=== PATIENT | female | born 1950 | race Caucasian/White ===

== ENCOUNTER → 2017-12-17 | Outpatient (CLI) | payer OTHER ==
[~2017-12-17] MED LIST: ACET325 PO; ALBU90OI INH; ALBU90OI61 INH; AMLO5 PO; ASCO500 PO; ATOR40TA PO; BENA20 PO; CYAN100 PO; DOCU100 PO; DULO60 PO; ERGO400 PO; FERR325 PO; FLUT44OIA INH; HYDACE10B PO; IBUP800 PO; IRON325 MG PO; METF500 PO; NORCO; OMEG1CAP30; OMEP20ER PO; OSTERA TABLET1 EACH PO; OXYACE5T PO; OXYB5 PO; OXYB5ER PO; SULTRIDS PO; TOCO400 PO; VIT C BIOFLAVO PO; Verotin-Gr Cap1 EACH PO; Vitamin D2000 UNIT PO; WARF4 PO; [UNRECOGNIZED DRUG - OTHER] PO
[2017-12-17 12:08] LABS: Source, Urine Clean Catch
[2017-12-17 12:54] LABS: Appearance, Urine Cloudy (Clear); Bilirubin, Urine Neg (Neg); Blood, Urine 4+ (Neg); Color, Urine Yellow (P-Yellow); Glucose Qualitative, Urine Neg (Neg); Ketones, Urine Neg (Neg); Leukocyte Esterase, Urine 3+ (Neg); Nitrite, Urine Neg (Neg); Protein, Urine 3+ (Neg); Specific Gravity, Urine 1.015 (1.003-1.022); Urobilinogen, Urine NORM (Normal)
[2017-12-17 13:39] LABS: Bacteria Many /hpf; Squamous Epithelial Cells Few /hpf (Few); White Blood Cells, Urine TNTC /hpf (0-5)
== END | disposition home or self-care (01) ==
LOC: LAB 12:02 → LAB SHORT 12:02
PROVIDERS: Nurse Practitioner Family
DX: R30.0 Dysuria (principal)
CPT/HCPCS: 81001; 87077; 87086; 87186

== ENCOUNTER → 2018-04-08 | Outpatient (CLI) | payer OTHER ==
[2018-04-08 13:29] LABS: Source, Urine Clean Catch
[2018-04-08 14:56] LABS: Appearance, Urine Hazy (Clear); Bilirubin, Urine Neg (Neg); Blood, Urine 4+ (Neg); Color, Urine Yellow (P-Yellow); Glucose Qualitative, Urine Neg (Neg); Ketones, Urine Neg (Neg); Leukocyte Esterase, Urine 3+ (Neg); Nitrite, Urine Neg (Neg); Protein, Urine 2+ (Neg); Urobilinogen, Urine NORM (Normal)
[2018-04-08 15:42] LABS: White Blood Cells, Urine TNTC /hpf (0-5)
[2018-04-08 15:44] LABS: Bacteria Many /hpf; Squamous Epithelial Cells Few /hpf (Few); Transitional Epithelial Cells Few /hpf (0-Rare); Yeast/Fungi Urine Few /hpf
== END | disposition home or self-care (01) ==
LOC: LAB SHORT 13:26 → LAB 13:26
PROVIDERS: Nurse Practitioner Family
DX: E11.9 Type 2 diabetes mellitus without complications (principal); R30.0 Dysuria
CPT/HCPCS: 81001; 82043; 87077; 87086; 87186

== ENCOUNTER → 2018-09-09 | Outpatient (CLI) | payer OTHER ==
[2018-09-09 13:13] LABS: Source, Urine Clean Catch
[2018-09-09 14:11] LABS: Bilirubin, Urine Neg (Neg); Blood, Urine 1+ (Neg); Glucose Qualitative, Urine Neg (Neg); Ketones, Urine Neg (Neg); Leukocyte Esterase, Urine 3+ (Neg); Nitrite, Urine Pos (Neg); Protein, Urine 1+ (Neg); Specific Gravity, Urine 1.015 (1.003-1.022); Urobilinogen, Urine NORM (Normal)
[2018-09-09 14:19] LABS: Color, Urine Yellow (P-Yellow)
[2018-09-09 14:20] LABS: Appearance, Urine Hazy (Clear)
[2018-09-09 14:21] LABS: Bacteria Many /hpf; Squamous Epithelial Cells Few /hpf (Few); Transitional Epithelial Cells Few /hpf (0-Rare); White Blood Cells, Urine 25-50 /hpf (0-5)
== END | disposition home or self-care (01) ==
LOC: LAB 13:12 → LAB FUT 13:12 → EDSTATUS 09-05 08:00
PROVIDERS: Nurse Practitioner Family
DX: R30.0 Dysuria (principal)
CPT/HCPCS: 81001; 87077; 87086; 87186

== ENCOUNTER → 2019-03-18 | Outpatient (CLI) | payer OTHER | END | disposition home or self-care (01) | LOC: LAB 14:03 → LAB SHORT 14:03 | DX: R30.0 Dysuria (principal) | CPT/HCPCS: 87086 ==

== ENCOUNTER → 2019-09-04 | Outpatient (CLI) | payer OTHER ==
[2019-09-04 19:21] LABS: Bilirubin, Urine Neg (Neg); Blood, Urine 2+ (Neg); Glucose Qualitative, Urine Neg (Neg); Ketones, Urine Neg (Neg); Leukocyte Esterase, Urine 1+ (Neg); Nitrite, Urine Pos (Neg); Protein, Urine Neg (Neg); Specific Gravity, Urine 1.015 (1.003-1.022); Urobilinogen, Urine NORM (Normal)
[2019-09-04 19:30] LABS: Appearance, Urine Hazy (Clear); Color, Urine Yellow (P-Yellow)
[2019-09-04 19:31] LABS: Bacteria Many /hpf; Squamous Epithelial Cells Few /hpf (Few); White Blood Cells, Urine 50-100 /hpf (0-5)
== END | disposition home or self-care (01) ==
LOC: LAB 17:47 → LAB SHORT 17:47
PROVIDERS: Internal Medicine
DX: N39.0 Urinary tract infection, site not specified (principal)
CPT/HCPCS: 81001; 87077; 87086; 87186

== ENCOUNTER → 2019-12-29 | Outpatient (CLI) | payer OTHER | END | disposition home or self-care (01) | LOC: LAB SHORT 14:30 → LAB 14:30 | DX: R30.9 Painful micturition, unspecified (principal) | CPT/HCPCS: 87077; 87086; 87186 ==

== ENCOUNTER → 2020-01-29 | Outpatient (CLI) | payer OTHER | END | disposition home or self-care (01) | LOC: LAB 16:38 → LAB SHORT 16:38 | DX: N39.0 Urinary tract infection, site not specified (principal) | CPT/HCPCS: 87077; 87086; 87186 ==

== ENCOUNTER → 2020-11-21 | Outpatient (CLI) | payer OTHER ==
[2020-11-21 14:25] LABS: Creatinine Urine 60.3 mg/dL (27.00-270.00); Protein, Urine Quantitative 16.6 mg/dL (0.0-11.9)
== END | disposition home or self-care (01) ==
LOC: LAB 10:00 → LAB SHORT 10:00 → LAB FUT 11-18 12:00
PROVIDERS: Internal Medicine Nephrology
DX: N18.30 Chronic kidney disease, stage 3 unspecified (principal); D63.1 Anemia in chronic kidney disease; N25.81 Secondary hyperparathyroidism of renal origin; D55.9 Anemia due to enzyme disorder, unspecified; E78.00 Pure hypercholesterolemia, unspecified; D51.8 Other vitamin B12 deficiency anemias; D52.8 Other folate deficiency anemias; D50.9 Iron deficiency anemia, unspecified; R76.9 Abnormal immunological finding in serum, unspecified; R94.5 Abnormal results of liver function studies; R94.6 Abnormal results of thyroid function studies
CPT/HCPCS: 81050; 82043; 82570; 84156

== ENCOUNTER → 2021-03-03 | Outpatient (CLI) | payer OTHER | END | disposition home or self-care (01) | LOC: LAB SHORT 12:00 → LAB 12:00 | DX: N39.0 Urinary tract infection, site not specified (principal) | CPT/HCPCS: 87086 ==